=== PATIENT | male | born 1950 | race African-American/Black ===

== ENCOUNTER 2018-08-25 22:55 | Inpatient (IN) | payer MEDICARE, OTHER ==
--- NOTE | 2018-08-25 23:35 | ER Document Report ---
ED Cardiac - General Chief Complaint: Chest Pain Stated Complaint: SHORTNESS OF BREATH Time Seen by Provider: 08/25/18 23:19 Mode of Arrival: Ambulatory TRAVEL OUTSIDE OF THE [place] IN LAST 30 DAYS: No - HPI Patient complains to provider of: Other - 68-year-old man presents for evaluation of exertional dyspnea which has been worsening over the last 3 days. 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 Denies any history of heart attacks in the past or heart failure, does not have any stents placed, has had a stress test never had a catheterization. Notes that he has had his prostate removed in the past and is followed chronically for his CML. - Related Data Allergies/Adverse Reactions: Iodinated Contrast- Oral and IV Dye Allergy (Severe, Verified 08/26/18 00:29) neck swelling, difficulty breathing Past Medical History - General Information source: Patient - Social History Smoking Status: Never Smoker Frequency of alcohol use: None Drug Abuse: None Family History: None Review of Systems - Review of Systems -: Yes All other systems reviewed and negative Physical Exam - Vital signs Vitals: Temp Pulse Resp BP Pulse Ox 98.3 F 96 22 H 171/105 H 91 L 08/25/18 22:55 08/25/18 22:55 08/25/18 22:55 08/25/18 22:55 08/25/18 22:55 - General General appearance: Alert, Anxious In distress: Mild - HEENT Head: Normocephalic Eyes: Normal Conjunctiva: Normal Cornea: Normal Extraocular movements intact: Yes Eyelashes: Normal Pupils: PERRL Pharynx: Normal Neck: Normal - Respiratory Respiratory status: Agonal respirations, Tachypnea Chest status: Nontender Breath sounds: Rhonchi - Inferior lung butcher Chest palpation: Normal - Cardiovascular Rhythm: Regular Heart sounds: Normal auscultation Murmur: No - Abdominal Inspection: Normal Distension: No distension Tenderness: Nontender - Back Back: Normal - Extremities General upper extremity: Normal inspection, Nontender, Normal strength, Normal temperature General lower extremity: Normal inspection, Nontender, Normal strength, Normal temperature - Neurological Neuro grossly intact: Yes Cognition: Normal Orientation: AAOx4 Colwell Coma Scale Eye Opening: Spontaneous Colwell Coma Scale Verbal: Oriented Colwell Coma Scale Motor: Obeys Commands Colwell Coma Scale Total: 15 Speech: Normal Cranial nerves: Normal Motor strength normal: LUE, RUE, LLE, RLE - Psychological Associated symptoms: Normal affect Course - Re-evaluation Re-evalutation: 08/26/18 01:26 CML patient who presents for evaluation of increasing dyspnea over the last week. Endorses some weight cream over that time but does not weigh himself normally. On examination he is moderately tachypneic breathing between 25 and 30 times a minute, he is also unable to lie flat. He was placed on 2 L nasal cannula as he was 88% on room air. Initiated workup including x-ray of the chest, screening labs including troponin BNP EKG. Perform bedside echocardiogram for evaluation of possible effusion, there is no appreciable pericardial effusion, the patient's ejection fraction however appears markedly diminished, his right ventricle is collapsed suggestive of normal pulmonary filling pressures however his left ventricle demonstrates markedly diminished ejection fraction approximately 15% on bedside echocardiogram. Have a concern that this patient likely has new onset heart failure, chest x- ray demonstrates pulmonary edema without any obvious large effusions. We will initiate diuresis. Patient does have a leukocytosis in line with his known CML. His chemistry is relatively unremarkable. Have given 40 mg IV Lasix. We will plan for this patient undergo admission to the [facility] under the care of Dr. Paul Calles. We will continue to monitor emergency department until he is appropriately transition. - Vital Signs Vital signs: Temp Pulse Resp BP Pulse Ox 98.3 F 96 24 H 171/110 H 94 08/25/18 22:55 08/25/18 22:55 08/26/18 01:01 08/26/18 01:01 08/26/18 01:01 - Laboratory Result Diagrams: 08/25/18 23:55 08/25/18 23:55 Laboratory results interpreted by me: 08/25/18 08/25/18 23:55 23:55 WBC 31.9 H* RBC 4.09 L Hgb 11.3 L Hct 34.8 L RDW 14.7 H Plt Count 119 L Seg Neuts % (Manual) 9 L Lymphocytes % (Manual) 88 H Monocytes % (Manual) 2 L Abs Lymphs (Manual) 28.1 H Total Bilirubin 1.8 H ALT 16 L Total Protein 8.4 H Discharge - Discharge Clinical Impression: Orthopnea Heart failure Qualifiers: Heart failure type: unspecified Heart failure chronicity: unspecified Qualified Code(s): I50.9 - Heart failure, unspecified Dyspnea Qualifiers: Dyspnea type: unspecified Qualified Code(s): R06.00 - Dyspnea, unspecified Condition: Stable Disposition: ADMITTED INPATIENT Admitting Provider: Hospitalist Unit Admitted: IMCU Referrals: HAILEE KEY PA [Primary Care Provider] - Follow up as needed
[2018-08-26 00:16] LABS: VENOUS BLOOD BASE EXCESS 1.1 mmol/L; VENOUS BLOOD HCO3 26.8 mmol/L (20-32); VENOUS BLOOD PCO2 46.9 mmHg (35-63); VENOUS BLOOD PH 7.38 (7.30-7.42)
[2018-08-26 00:21] LABS: HEMATOCRIT 34.8 % (37.9-51.0); HEMOGLOBIN 11.3 g/dL (13.5-17.0); MEAN CORPUSCULAR HEMOGLOBIN 27.6 pg (27.0-33.4); MEAN CORPUSCULAR HGB CONC 32.4 g/dL (32.0-36.0); MEAN CORPUSCULAR VOLUME 85 fl (80-97); PLATELET COUNT 119 10^3/uL (150-450); RED BLOOD COUNT 4.09 10^6/uL (4.35-5.55); RED CELL DISTRIBUTION WIDTH 14.7 % (11.5-14.0)
--- NOTE | 2018-08-26 00:29 | RADIOLOGY REPORT (SQ) ---
PROCEDURE: XR CHEST 1 VIEW HISTORY: short of breath COMPARISON: None TECHNIQUE: Single projection of the chest was done. FINDINGS: There is mild cardiomegaly and mild bilateral vascular congestion suspicious for underlying changes of mild volume overload . There are no discrete airspace infiltrates, pneumothoraces or pleural effusions. IMPRESSION: There is mild cardiomegaly and mild bilateral vascular congestion suspicious for underlying changes of mild volume overload .
[2018-08-26 00:31] LABS: ALANINE AMINOTRANSFERASE 16 U/L (21-72); ALBUMIN 4.6 g/dL (3.5-5.0); ALKALINE PHOSPHATASE 71 U/L (38-126); ANION GAP 10 (5-19); ASPARTATE AMINO TRANSFERASE 42 U/L (17-59); BILIRUBIN,DIRECT 0.3 mg/dL (0.0-0.4); BILIRUBIN,TOTAL 1.8 mg/dL (0.2-1.3); BLOOD UREA NITROGEN 17 mg/dL (7-20); CALCIUM 8.9 mg/dL (8.4-10.2); CARBON DIOXIDE 28 mmol/L (22-30); CHLORIDE 102 mmol/L (98-107); GLUCOSE 90 mg/dL (75-110); LIPASE 71.9 U/L (23-300); POTASSIUM 4.1 mmol/L (3.6-5.0); SODIUM 140.4 mmol/L (137-145); TOTAL PROTEIN 8.4 g/dL (6.3-8.2)
[2018-08-26 00:43] LABS: ABSOLUTE LYMPHOCYTES# (MANUAL) 28.1 10^3/uL (0.5-4.7); ABSOLUTE MONOCYTES # (MANUAL) 0.6 10^3/uL (0.1-1.4); ABSOLUTE NEUTROPHILS# (MANUAL) 2.9 10^3/uL (1.7-8.2); BASOPHILS % (MANUAL) 0 % (0-2); EOSINOPHILS % (MANUAL) 1 % (0-6); MONOCYTES % (MANUAL) 2 % (3-13); SEGMENTED NEUTROPHILS % (MAN) 9 % (42-78); TOTAL CELLS COUNTED 100
[2018-08-26 00:46] LABS: ANISOCYTOSIS SLIGHT; PLATELET COMMENT DECREASED; PLATELET GIANT PRESENT; PLATELET LARGE PRESENT; SMUDGE CELLS PRESENT; TOXIC VACUOLATION PRESENT
[2018-08-26] MEDS ORDERED: FUROSEMIDE INJ/PF 40 MG/4 ML SDV IV ONE (00:47)
[2018-08-26 00:52] LABS: LYMPHOCYTES % (MANUAL) 88 % (13-45); WHITE BLOOD COUNT 31.9 10^3/uL (4.0-10.5)
[2018-08-26] MEDS ORDERED: ACETAMINOPHEN 325 MG TABLET PO PRN (01:50)
[2018-08-26] MEDS ORDERED: MAG HYDROX/AL HYDROX/SIMETH SUSP 30 ML UDCUP PO PRN (01:50)
--- NOTE | 2018-08-26 05:45 | PDOC H&P ---
History of Present Illness Admission Date/PCP: 08/26/18 01:33 DEEPTHI BOWIE Patient complains of: Shortness of breath History of Present Illness: MARIA TREJO is a 68 year old male with a past medical history of CML, prostate cancer in remission and hypertension. Patient presents with 3 days of worsening shortness of breath with exertion, lower extremity edema and orthopnea. Denying palpitations or chest pain but admitting productive cough of clear sputum. In the emergency room is found to have uncontrolled blood pressure in the 180 systolic, and a chest x-ray with pulmonary vascular congestion. He receives IV Lasix and referred to the hospitalist for admission. Patient denies previous episode. He admits to the discontinuation of blood pressure medication over the last year. He is pain-free and feels better on nasal cannula oxygen. Past Medical History Cardiac Medical History: Reports: Hypertension Malignancy Medical History: Reports: Leukemia, Other - Prostate cancer Past Surgical History Past Surgical History: Reports: Orthopedic Surgery - knee, Other - Prostatectomy Social History Information Source: Patient Smoking Status: Never Smoker Frequency of Alcohol Use: None Hx Recreational Drug Use: No Drugs: None Hx Prescription Drug Abuse: No - Advance Directive Resuscitation Status: Full Code Family History Family History: None Parental Family History Reviewed: Yes Children Family History Reviewed: Yes Sibling(s) Family History Reviewed.: Yes Medication/Allergy Allergies/Adverse Reactions: Iodinated Contrast- Oral and IV Dye Allergy (Severe, Verified 08/26/18 00:29) neck swelling, difficulty breathing Review of Systems Constitutional: ABSENT: chills, fever(s), headache(s), weight gain, weight loss Eyes: ABSENT: visual disturbances Ears: ABSENT: hearing changes Cardiovascular: PRESENT: as per HPI, dyspnea on exertion, edema, orthropnea. ABSENT: chest pain, palpitations Respiratory: ABSENT: cough, hemoptysis Gastrointestinal: ABSENT: abdominal pain, constipation, diarrhea, hematemesis, hematochezia, nausea, vomiting Genitourinary: ABSENT: dysuria, hematuria Musculoskeletal: ABSENT: joint swelling Integumentary: ABSENT: rash, wounds Neurological: ABSENT: abnormal gait, abnormal speech, confusion, dizziness, focal weakness, syncope Psychiatric: ABSENT: anxiety, depression, homidical ideation, suicidal ideation Endocrine: ABSENT: cold intolerance, heat intolerance, polydipsia, polyuria Hematologic/Lymphatic: ABSENT: easy bleeding, easy bruising Physical Exam Vital Signs: Temp Pulse Resp BP Pulse Ox 98.1 F 83 16 161/98 H 95 08/26/18 03:16 08/26/18 03:16 08/26/18 03:16 08/26/18 03:16 08/26/18 03:16 Intake & Output 08/24/18 08/25/18 08/26/18 11:59 11:59 11:59 Output Total 300 Balance -300 Weight 99 kg General appearance: PRESENT: cooperative, mild distress. ABSENT: obese Head exam: PRESENT: atraumatic, normocephalic Eye exam: PRESENT: conjunctiva pink, EOMI, PERRLA. ABSENT: scleral icterus Ear exam: PRESENT: normal external ear exam Mouth exam: PRESENT: moist, tongue midline Neck exam: ABSENT: carotid bruit, JVD, lymphadenopathy, thyromegaly Respiratory exam: PRESENT: crackles. ABSENT: accessory muscle use, rales, rhonchi, wheezes Cardiovascular exam: PRESENT: RRR. ABSENT: diastolic murmur, rubs, systolic murmur Pulses: PRESENT: normal dorsalis pedis pul Vascular exam: PRESENT: normal capillary refill GI/Abdominal exam: PRESENT: normal bowel sounds, soft. ABSENT: distended, guarding, mass, organolmegaly, rebound, tenderness Rectal exam: PRESENT: deferred Extremities exam: PRESENT: full ROM, pedal edema, +1 edema. ABSENT: calf tenderness, clubbing Neurological exam: PRESENT: alert, awake, oriented to person, oriented to place , oriented to time, oriented to situation, CN II-XII grossly intact. ABSENT: motor sensory deficit Psychiatric exam: PRESENT: appropriate affect, normal mood. ABSENT: homicidal ideation, suicidal ideation Skin exam: PRESENT: dry, intact, warm. ABSENT: cyanosis, rash Results Impressions: Chest X-Ray 08/25/18 23:32 IMPRESSION: There is mild cardiomegaly and mild bilateral vascular congestion suspicious for underlying changes of mild volume overload . Assessment & Plan - Diagnosis (1) Heart failure Qualifiers: Heart failure type: unspecified Heart failure chronicity: unspecified Qualified Code(s): I50.9 - Heart failure, unspecified Is this a current diagnosis for this admission?: Yes Plan: Likely diastolic heart failure, optimize blood pressure, gentle diuresis, follow -up echocardiogram and cardiac enzymes. (2) Orthopnea Is this a current diagnosis for this admission?: Yes Plan: Supplemental oxygen and diuresis. (3) CML (chronic myelocytic leukemia) Is this a current diagnosis for this admission?: Yes Plan: With associated thrombocytopenia and leukocytosis at baseline. Defer to outpatient management. - Time Time Spent: 50 to 70 Minutes - Inpatient Certification Medical Necessity: Need Close Monitoring Due to Risk of Patient Decompensation
[2018-08-26] MEDS: HEPARIN SOD (PORCINE) 5,000 UNIT/ML 1 ML SYRINGE SUBCUT SCH ×3 (06:25→21:53)
[2018-08-26 06:34] LABS: ANION GAP 12 (5-19); BLOOD UREA NITROGEN 17 mg/dL (7-20); CALCIUM 9.1 mg/dL (8.4-10.2); CARBON DIOXIDE 28 mmol/L (22-30); CHLORIDE 101 mmol/L (98-107); CHOLESTEROL 210.93 mg/dL (0-200); CREATINE KINASE 329 U/L (55-170); GLUCOSE 93 mg/dL (75-110); POTASSIUM 3.9 mmol/L (3.6-5.0); SODIUM 140.9 mmol/L (137-145); TRIGLYCERIDES 90 mg/dL (<150)
[2018-08-26 06:42] LABS: CREATINE KINASE MB 1.93 ng/mL (<4.55); TROPONIN I 0.031 ng/mL
[2018-08-26 06:45] LABS: DIRECT LDL 148 mg/dL (<100)
--- NOTE | 2018-08-26 09:11 | PDOC CONSULTATION ---
Consultation Consult Date: 08/26/18 Attending physician:: JOSE RAFAEL MCGOVERN Consult reason:: History of CLL on imbruvica, here with shortness of breath, pulmonary edema History of Present Illness Admission Date/PCP: 08/26/18 01:33 DEEPTHI BOWIE Patient complains of: Shortness of breath, dyspnea on exertion History of Present Illness: MARIA TREJO is a 68 year old male with long-standing history of CLL, also prostate cancer, recently with progression of CLL and was started a few months ago on Imbruvica, approximately 2 months ago. He has had a good response thus far. His white count has been coming down appropriately. Prior to initiation it was close to 100,000. He notes that about 3 days ago he had acute onset of shortness of breath dyspnea on exertion, orthopnea, ultimately the shortness of breath worsened and he came to the ED. Here, his blood pressure was quite elevated and he was found to have a malignant hypertension picture, chest x-ray indicated bilateral vascular congestion seemingly consistent with flash pulmonary edema. Previously was on antihypertensives, but when we treated him about 3 years ago initially with chemotherapy for the CLL he had lost weight, and he also lost weight with a prostatectomy at that time as well. So he came off blood pressure medication I think because of the weight loss. Past Medical History Cardiac Medical History: Reports: Hypertension Malignancy Medical History: Reports: Leukemia - cll, Other - Prostate cancer Past Surgical History Past Surgical History: Reports: Orthopedic Surgery - knee, Other - Prostatectomy Social History Information Source: Patient Smoking Status: Never Smoker Frequency of Alcohol Use: None Hx Recreational Drug Use: No Drugs: None Hx Prescription Drug Abuse: No - Advance Directive Resuscitation Status: Full Code Family History Family History: None Parental Family History Reviewed: Yes Children Family History Reviewed: Yes Sibling(s) Family History Reviewed.: Yes Medication/Allergy Allergies/Adverse Reactions: Iodinated Contrast- Oral and IV Dye Allergy (Severe, Verified 08/26/18 00:29) neck swelling, difficulty breathing Review of Systems Constitutional: ABSENT: chills, fever(s), headache(s), weight gain, weight loss Eyes: ABSENT: visual disturbances Ears: ABSENT: hearing changes Cardiovascular: ABSENT: chest pain, dyspnea on exertion, edema, orthropnea, palpitations Respiratory: ABSENT: cough, hemoptysis Gastrointestinal: ABSENT: abdominal pain, constipation, diarrhea, hematemesis, hematochezia, nausea, vomiting Genitourinary: ABSENT: dysuria, hematuria Musculoskeletal: ABSENT: joint swelling Integumentary: ABSENT: rash, wounds Neurological: ABSENT: abnormal gait, abnormal speech, confusion, dizziness, focal weakness, syncope Psychiatric: ABSENT: anxiety, depression, homidical ideation, suicidal ideation Endocrine: ABSENT: cold intolerance, heat intolerance, polydipsia, polyuria Hematologic/Lymphatic: ABSENT: easy bleeding, easy bruising Physical Exam Vital Signs: Temp Pulse Resp BP Pulse Ox 97.7 F 81 18 144/96 H 100 08/26/18 07:13 08/26/18 07:13 08/26/18 07:13 08/26/18 07:13 08/26/18 07:13 Intake & Output 08/25/18 08/26/18 08/27/18 06:59 06:59 06:59 Output Total 300 Balance -300 Weight 95.5 kg General appearance: PRESENT: no acute distress, well-developed, well-nourished Head exam: PRESENT: atraumatic, normocephalic Eye exam: PRESENT: conjunctiva pink, EOMI, PERRLA. ABSENT: scleral icterus Ear exam: PRESENT: normal external ear exam Mouth exam: PRESENT: moist, tongue midline Neck exam: ABSENT: carotid bruit, JVD, lymphadenopathy, thyromegaly Respiratory exam: PRESENT: clear to auscultation awa. ABSENT: rales, rhonchi, wheezes Cardiovascular exam: PRESENT: RRR. ABSENT: diastolic murmur, rubs, systolic murmur Pulses: PRESENT: normal dorsalis pedis pul Vascular exam: PRESENT: normal capillary refill GI/Abdominal exam: PRESENT: normal bowel sounds, soft. ABSENT: distended, guarding, mass, organolmegaly, rebound, tenderness Rectal exam: PRESENT: deferred Extremities exam: PRESENT: full ROM. ABSENT: calf tenderness, clubbing, pedal edema Neurological exam: PRESENT: alert, awake, oriented to person, oriented to place , oriented to time, oriented to situation, CN II-XII grossly intact. ABSENT: motor sensory deficit Psychiatric exam: PRESENT: appropriate affect, normal mood. ABSENT: homicidal ideation, suicidal ideation Skin exam: PRESENT: dry, intact, warm. ABSENT: cyanosis, rash Results Laboratory Results: 08/26/18 05:49 08/26/18 05:49 Sodium 140.9 Potassium 3.9 Chloride 101 Carbon Dioxide 28 Anion Gap 12 BUN 17 Creatinine 0.86 Est GFR ( Amer) > 60 Est GFR (Non-Af Amer) > 60 Glucose 93 Calcium 9.1 Triglycerides 90 Cholesterol 210.93 H LDL Cholesterol Direct 148 H VLDL Cholesterol 18.0 HDL Cholesterol 42 08/26/18 08/26/18 05:49 05:49 Creatine Kinase 329 H CK-MB (CK-2) 1.93 Troponin I 0.031 Impressions: Chest X-Ray 08/25/18 23:32 IMPRESSION: There is mild cardiomegaly and mild bilateral vascular congestion suspicious for underlying changes of mild volume overload . Assessment & Plan - Diagnosis (1) CLL (chronic lymphoid leukemia) in relapse Is this a current diagnosis for this admission?: Yes Plan: He has had good response, he is on the drug Imbruvica which does not have a significant risk of causing heart failure, but it does have a link closely to hypertension, so it can cause worsened hypertension, I believe he had underlying essential hypertension and this probably worsened that, ultimately resulting in a flash pulmonary edema picture. This is more likely than the drug causing either heart failure or a pulmonary hypersensitivity. He will hold the drug until this resolves and he sees me as an outpatient. Once his blood pressures under control we will reintroduce the drug and monitor him closely. (2) Dyspnea Qualifiers: Dyspnea type: orthopnea Qualified Code(s): R06.01 - Orthopnea Is this a current diagnosis for this admission?: Yes Plan: Secondary to flash pulmonary edema, agree with diuresis approach. - Time Time Spent: Greater than 70 Minutes - Inpatient Certification Based on my medical assessment, after consideration of the patient's comorbidities, presenting symptoms, or acuity I expect that the services needed warrant INPATIENT care.: Yes I certify that my determination is in accordance with my understanding of Medicare's requirements for reasonable and necessary INPATIENT services [42 CFR 412.3e].: Yes Medical Necessity: Risk of Complication if Not Cared For in Hospital
[2018-08-26] MEDS ORDERED: FUROSEMIDE INJ/PF 40 MG/4 ML SDV IV SCH (10:00)
[2018-08-26] MEDS ORDERED: NITROGLYCERIN 2.5 MG (0.1 MG/HR) PATCH.TD24 TD SCH (10:00)
[2018-08-26] MEDS ORDERED: POTASSIUM CHLORIDE 10 MEQ CAPSULE.ER PO SCH (10:00)
[2018-08-26] MEDS: LOSARTAN POTASSIUM 50 MG TABLET PO SCH (10:01)
[2018-08-26] MEDS: DOCUSATE SODIUM 100 MG CAPSULE PO SCH (10:01)
[2018-08-26] MEDS: ASPIRIN 81 MG TABLET, ENT COATED PO SCH (10:01)
--- NOTE | 2018-08-26 10:44 | EKG REPORT ---
SEVERITY:- ABNORMAL ECG - SINUS TACHYCARDIA MULTIFORM VENTRICULAR PREMATURE COMPLEXES LEFT ATRIAL ABNORMALITY BORDERLINE LEFT AXIS DEVIATION : Confirmed by: Tiburcio Velez 26-Aug-2018 10:44:33
--- NOTE | 2018-08-26 13:01 | XCELERA REPORT ---
[address] [address] Transthoracic Echocardiogram Report Name: MARIA TREJO Age: 68 yrs Gender: Male : 1950 Patient Status: Inpatient Patient Location: [address] [place] [address] Study Date: 08/26/2018 10:02 AM Procedure: A complete two-dimensional transthoracic echocardiogram was performed (2D, M-mode, spectral and color flow Doppler). The study was technically difficult with many images being suboptimal in quality. Reason For Study: new chf Ordering Physician: JOSE RAFAEL MCGOVERN Performed By: Patria Lombardi Interpretation Summary The Ejection Fraction estimate is 40-45% Left ventricular systolic function is mild to moderately reduced. There is borderline concentric left ventricular hypertrophy. The left ventricle is grossly normal size. Doppler measurements suggest reversible restrictive left ventricular relaxation, which is associated with grade III/IV or moderate diastolic dysfunction Regional wall motion abnormalities cannot be excluded due to limited visualization. Right ventricular function cannot be assessed due to poor image quality. The left atrium is moderately dilated. Borderline right atrial enlargement. There is a mild to moderate amount of mitral regurgitation There is no mitral valve stenosis. No aortic regurgitation is present. There is no aortic valve stenosis There is no tricuspid stenosis. No tricuspid regurgitation. The aortic root is not well visualized. The inferior vena cava appeared normal and decreased > 50% with respiration (RAP 5-10 mmHg) There is no pericardial effusion. Consider alternative methods to evaluate LVEF such as MUGA scan, cardiac MRI, or cardiac CTA. MMode/2D Measurements & Calculations RVDd: 3.5 cm LVIDd: 6.4 cm FS: 27.4 % Ao root diam: 3.2 cm IVSd: 0.87 cm LVIDs: 4.7 cm EDV(Teich): 210.6 ml Ao root area: 8.1 cm2 LVPWd: 1.1 cm ESV(Teich): 100.6 ml EF(Teich): 52.2 % Doppler Measurements & Calculations MV E max lucas: MV dec slope: Ao V2 max: LV V1 max P.8 cm/sec 120.2 cm/sec 5.0 mmHg MV A max lucas: 886.1 cm/sec2 Ao max PG: LV V1 max: 34.0 cm/sec MV dec time: 0.14 sec5.8 mmHg 111.8 cm/sec MV E/A: 3.6 LV dP/dt: 1057 mmHg/s PA V2 max: PI end-d lucas: 62.0 cm/sec 95.9 cm/sec PA max P.5 mmHg Left Ventricle The left ventricle is grossly normal size. There is borderline concentric left ventricular hypertrophy. Left ventricular systolic function is mild to moderately reduced. The Ejection Fraction estimate is 40-45%. Doppler measurements suggest reversible restrictive left ventricular relaxation, which is associated with grade III/IV or moderate diastolic dysfunction. Regional wall motion abnormalities cannot be excluded due to limited visualization. Right Ventricle The right ventricle is grossly normal size. Right ventricular function cannot be assessed due to poor image quality. Atria Borderline right atrial enlargement. The left atrium is moderately dilated. Interarterial septum not well visualized and not well dopplered. Cannot comment on ASD/PFO presence. Mitral Valve The mitral valve leaflets are sclerotic and show some degree of functional abnormality. There is no mitral valve stenosis. There is a mild to moderate amount of mitral regurgitation. Aortic Valve The aortic valve is not well visualized secondary to technical limitations. There is no aortic valve stenosis. No aortic regurgitation is present. Tricuspid Valve The tricuspid valve is not well visualized secondary to technical limitations. There is no tricuspid stenosis. No tricuspid regurgitation. Pulmonic Valve The pulmonic valve is not well visualized. Great Vessels The aortic root is not well visualized. The inferior vena cava appeared normal and decreased > 50% with respiration (RAP 5-10 mmHg). Effusions There is no pericardial effusion. Incidental Findings Consider alternative methods to evaluate LVEF such as MUGA scan, cardiac MRI, or cardiac CTA. : JOSE RAFAEL MCGOVERN > Tiburcio Velez
[2018-08-26 13:58] LABS: CREATINE KINASE MB 1.49 ng/mL (<4.55); TROPONIN I 0.024 ng/mL
--- NOTE | 2018-08-26 17:03 | PDOC PROGRESS REPORT ---
Subjective Progress Note for:: 08/26/18 Subjective:: The patient is a 68-year-old male with a medical history of CLL and prostate cancer (on oral chemotherapy agent followed by Dr. Jernigan) and hypertension who was admitted 08/26/18 for heart failure. The patient was seen on morning rounds. He was found resting in bed comfortably on supplemental oxygen by nasal cannula with his family member present. The patient endorses continued orthopnea, however, reports that he slept the best he has in several weeks last night after receiving IV furosemide. He reports continued mild dyspnea while at rest that worsens significantly with mild exacerbation. He denies fever, chills, headache, dizziness, chest pain, palpitations, cough, abdominal pain, nausea vomiting and diarrhea. He has no questions or concerns at this time. No concerns per nursing. Reason For Visit: HTN HEART FAILURE Physical Exam Vital Signs: Temp Pulse Resp BP Pulse Ox 97.8 F 71 18 119/82 96 08/26/18 16:21 08/26/18 16:21 08/26/18 16:21 08/26/18 16:21 08/26/18 16:21 Intake & Output 08/25/18 08/26/18 08/27/18 06:59 06:59 06:59 Intake Total 725 Output Total 300 500 Balance -300 225 Weight 95.5 kg General appearance: PRESENT: no acute distress, cooperative, well-developed, well-nourished - Overweight Head exam: PRESENT: atraumatic, normocephalic Eye exam: PRESENT: conjunctiva pink, EOMI, PERRLA. ABSENT: scleral icterus Ear exam: PRESENT: normal external ear exam Mouth exam: PRESENT: moist, tongue midline Neck exam: ABSENT: carotid bruit, JVD, lymphadenopathy, thyromegaly Respiratory exam: PRESENT: clear to auscultation awa, crackles - Bibasilar, symmetrical, unlabored, other - Supplemental oxygen by nasal cannula. ABSENT: rales, rhonchi, wheezes Cardiovascular exam: PRESENT: RRR, +S1, +S2. ABSENT: diastolic murmur, rubs, systolic murmur Pulses: PRESENT: normal dorsalis pedis pul Vascular exam: PRESENT: normal capillary refill GI/Abdominal exam: PRESENT: normal bowel sounds, soft. ABSENT: distended, guarding, mass, organolmegaly, rebound, tenderness Rectal exam: PRESENT: deferred Extremities exam: PRESENT: full ROM. ABSENT: calf tenderness, clubbing, pedal edema Neurological exam: PRESENT: alert, awake, oriented to person, oriented to place , oriented to time, oriented to situation, CN II-XII grossly intact. ABSENT: motor sensory deficit Psychiatric exam: PRESENT: appropriate affect, normal mood. ABSENT: homicidal ideation, suicidal ideation Skin exam: PRESENT: dry, intact, warm. ABSENT: cyanosis, rash Results Laboratory Results: 08/26/18 05:49 08/26/18 05:49 Sodium 140.9 Potassium 3.9 Chloride 101 Carbon Dioxide 28 Anion Gap 12 BUN 17 Creatinine 0.86 Est GFR ( Amer) > 60 Est GFR (Non-Af Amer) > 60 Glucose 93 Calcium 9.1 Triglycerides 90 Cholesterol 210.93 H LDL Cholesterol Direct 148 H VLDL Cholesterol 18.0 HDL Cholesterol 42 08/26/18 08/26/18 08/26/18 05:49 05:49 12:51 Creatine Kinase 329 H 290 H CK-MB (CK-2) 1.93 Troponin I 0.031 08/26/18 12:51 Creatine Kinase CK-MB (CK-2) 1.49 Troponin I 0.024 Impressions: Chest X-Ray 08/25/18 23:32 IMPRESSION: There is mild cardiomegaly and mild bilateral vascular congestion suspicious for underlying changes of mild volume overload . Assessment & Plan - Diagnosis (1) Acute exacerbation of CHF (congestive heart failure) Qualifiers: Heart failure type: combined systolic and diastolic Qualified Code(s): I50.43 - Acute on chronic combined systolic (congestive) and diastolic ( congestive) heart failure Is this a current diagnosis for this admission?: Yes Plan: The patient was admitted with dyspnea, orthopnea, and hypertensive urgency. He was found to have pulmonary edema by chest x-ray with mild cardiomegaly. ProBNP normal at 576. Cardiac enzymes negative x 3. Echocardiogram revealed LVEF 40-45% with borderline LVH, moderate diastolic dysfunction, and mild to moderate mitral regurgitation. He is admitted to [facility] on continuous cardiac telemetry. He received losartan, nitro transdermal patch, and IV furosemide overnight. We will continue his losartan. Have initiated spironolactone and carvedilol. We will plan to transition to p.o. furosemide tomorrow. He is placed on daily aspirin and statin therapy. Cardiac diet with daily weights and strict I&Os. Will need to determine if the patient is previously established with a gynecology teacher and ensure follow up after discharge. (2) Pulmonary edema Qualifiers: Chronicity: acute Qualified Code(s): J81.0 - Acute pulmonary edema Is this a current diagnosis for this admission?: Yes Plan: Secondary to acute CHF exacerbation and hypertensive urgency. He has been diuresed with IV furosemide with improvement in the symptoms, however, remains oxygen dependent. Continue diuresing with IV furosemide. Management of CHF as above. Attempt to wean oxygen as tolerated. (3) Hypertension Is this a current diagnosis for this admission?: Yes Plan: Improved with initial hypertension management: Losartan, nitroglycerin transdermal patch, IV furosemide overnight. Medication management as described above. Cardiac diet. (4) Hyperlipidemia Is this a current diagnosis for this admission?: Yes Plan: Lipid panel was assessed with a.m. labs: HDL 42, LDL 148, triglycerides 90, total cholesterol 210. He is placed on daily atorvastatin 20 mg. Cardiac diet. (5) CLL (chronic lymphocytic leukemia) Is this a current diagnosis for this admission?: Yes Plan: Patient of Dr. Jernigan's; appreciate his assistance. - Time Time Spent with patient: 15-24 minutes Medications reviewed and adjusted accordingly: Yes Anticipated discharge: Home Within: within 48 hours
[2018-08-26 18:59] LABS: CREATINE KINASE MB 1.37 ng/mL (<4.55); TROPONIN I 0.024 ng/mL
[2018-08-26] MEDS: CARVEDILOL 12.5 MG TABLET PO SCH (21:53)
[2018-08-26] MEDS: ATORVASTATIN CALCIUM 20 MG TABLET PO SCH (21:53)
[2018-08-27] MEDS: HEPARIN SOD (PORCINE) 5,000 UNIT/ML 1 ML SYRINGE SUBCUT SCH ×3 (05:13→21:35)
[2018-08-27 06:13] LABS: HEMOGLOBIN 10.5 g/dL (13.5-17.0); MEAN CORPUSCULAR HEMOGLOBIN 27.8 pg (27.0-33.4); MEAN CORPUSCULAR HGB CONC 32.9 g/dL (32.0-36.0); MEAN CORPUSCULAR VOLUME 84 fl (80-97); PLATELET COUNT 131 10^3/uL (150-450); RED BLOOD COUNT 3.79 10^6/uL (4.35-5.55); WHITE BLOOD COUNT 25.9 10^3/uL (4.0-10.5)
[2018-08-27 06:31] LABS: ANION GAP 13 (5-19); BLOOD UREA NITROGEN 25 mg/dL (7-20); CALCIUM 8.8 mg/dL (8.4-10.2); CARBON DIOXIDE 27 mmol/L (22-30); CHLORIDE 101 mmol/L (98-107); GLUCOSE 115 mg/dL (75-110); POTASSIUM 4.1 mmol/L (3.6-5.0); SODIUM 141.1 mmol/L (137-145)
--- NOTE | 2018-08-27 08:25 | PDOC PROGRESS REPORT ---
Subjective Progress Note for:: 08/27/18 Subjective:: Pt doing better this am Reason For Visit: HTN HEART FAILURE Physical Exam Vital Signs: Temp Pulse Resp BP Pulse Ox 97.9 F 58 L 16 111/71 92 08/27/18 07:38 08/27/18 07:38 08/27/18 07:38 08/27/18 07:38 08/27/18 07:38 Intake & Output 08/26/18 08/27/18 08/28/18 06:59 06:59 06:59 Intake Total 1915 Output Total 300 900 Balance -300 1015 Weight 95.5 kg 92.6 kg General appearance: PRESENT: no acute distress, well-developed, well-nourished Head exam: PRESENT: atraumatic, normocephalic Eye exam: PRESENT: conjunctiva pink, EOMI, PERRLA. ABSENT: scleral icterus Ear exam: PRESENT: normal external ear exam Mouth exam: PRESENT: moist, tongue midline Neck exam: ABSENT: carotid bruit, JVD, lymphadenopathy, thyromegaly Respiratory exam: PRESENT: clear to auscultation awa. ABSENT: rales, rhonchi, wheezes Cardiovascular exam: PRESENT: RRR. ABSENT: diastolic murmur, rubs, systolic murmur Pulses: PRESENT: normal dorsalis pedis pul Vascular exam: PRESENT: normal capillary refill GI/Abdominal exam: PRESENT: normal bowel sounds, soft. ABSENT: distended, guarding, mass, organolmegaly, rebound, tenderness Rectal exam: PRESENT: deferred Extremities exam: PRESENT: full ROM. ABSENT: calf tenderness, clubbing, pedal edema Neurological exam: PRESENT: alert, awake, oriented to person, oriented to place , oriented to time, oriented to situation, CN II-XII grossly intact. ABSENT: motor sensory deficit Psychiatric exam: PRESENT: appropriate affect, normal mood. ABSENT: homicidal ideation, suicidal ideation Skin exam: PRESENT: dry, intact, warm. ABSENT: cyanosis, rash Results Laboratory Results: 08/27/18 05:47 08/27/18 05:47 08/27/18 08/27/18 05:47 05:47 WBC 25.9 H RBC 3.79 L Hgb 10.5 L Hct 32.0 L MCV 84 MCH 27.8 MCHC 32.9 RDW 15.0 H Plt Count 131 L Sodium 141.1 Potassium 4.1 Chloride 101 Carbon Dioxide 27 Anion Gap 13 BUN 25 H Creatinine 1.12 Est GFR ( Amer) > 60 Est GFR (Non-Af Amer) > 60 Glucose 115 H Calcium 8.8 08/26/18 08/26/18 08/26/18 05:49 05:49 12:51 Creatine Kinase 329 H 290 H CK-MB (CK-2) 1.93 Troponin I 0.031 08/26/18 08/26/18 08/26/18 12:51 18:07 18:07 Creatine Kinase 310 H CK-MB (CK-2) 1.49 1.37 Troponin I 0.024 0.024 Impressions: Chest X-Ray 08/25/18 23:32 IMPRESSION: There is mild cardiomegaly and mild bilateral vascular congestion suspicious for underlying changes of mild volume overload . Assessment & Plan - Diagnosis (1) CLL (chronic lymphoid leukemia) in relapse Is this a current diagnosis for this admission?: Yes Plan: Holding imbruvica, likely cause of the worsened HTN, will restart once BP controlled and pt has had f/u w/ PCP. Ordered MUGA scan today to better quantify EF as suggested by cardiology in echo report. (2) Dyspnea Qualifiers: Dyspnea type: orthopnea Qualified Code(s): R06.01 - Orthopnea Is this a current diagnosis for this admission?: Yes Plan: SOB/FALK 2nd flash pulm edema from HTN emergency. improved
[2018-08-27] MEDS: DOCUSATE SODIUM 100 MG CAPSULE PO SCH (09:52)
[2018-08-27] MEDS: SPIRONOLACTONE 25 MG TABLET PO SCH (09:52)
[2018-08-27] MEDS: CARVEDILOL 12.5 MG TABLET PO SCH ×2 (09:52→21:33)
[2018-08-27] MEDS: ASPIRIN 81 MG TABLET, ENT COATED PO SCH (09:53)
[2018-08-27] MEDS: FUROSEMIDE 40 MG TABLET PO SCH (09:53)
[2018-08-27] MEDS: LOSARTAN POTASSIUM 50 MG TABLET PO SCH (09:53)
--- NOTE | 2018-08-27 12:56 | RADIOLOGY REPORT (SQ) ---
EXAM DESCRIPTION: NM MUGA REST COMPLETED DATE/TIME: 08/27/2018 12:15 pm REASON FOR STUDY: heart failure COMPARISON: Cardiac echo 08/26/2018 RADIONUCLIDE AND DOSE: 26.1 mCi technetium 99m labeled red blood cells The route of agent administration: Intravenous TECHNIQUE: Following administration of the radionuclide, gated images of the heart are obtained in t hree projections. Left ventricular functional analysis performed. LIMITATIONS: None. FINDINGS: LEFT VENTRICULAR FUNCTION: EJECTION FRACTION: 55%. END-DIASTOLIC VOLUME: 200 mL. END-SYSTOLIC VOLUME: 86 mL. WALL MOTION: No focal wall motion abnormalities. OTHER: No other significant finding. IMPRESSION: Left ventricular ejection fraction estimated at 55% (prior cardiac echo 08/26/2018 repor daniel a left ventricular ejection fraction of 47%) TECHNICAL DOCUMENTATION: JOB ID: [id number] [employer]- All Rights Reserved Reading location - IP/workstation name: [email or web address]
--- NOTE | 2018-08-27 17:01 | PDOC PROGRESS REPORT ---
Subjective Progress Note for:: 08/27/18 Subjective:: The patient is a 68-year-old male with a medical history of CLL and prostate cancer (on oral chemotherapy agent followed by Dr. Jernigan) and hypertension who was admitted 08/26/18 for heart failure. The patient was seen on afternoon rounds. He was found resting in bed comfortably on room air. The patient endorses continued orthopnea, though slightly improved last night. He denies dyspnea at rest or with activity. He reports that he ambulated in the hallways today without difficulty. Overall, he is feeling much better. He denies fever, chills, headache, dizziness, chest pain, palpitations, cough, abdominal pain, nausea vomiting and diarrhea. He has no questions or concerns at this time. No concerns per nursing. Reason For Visit: HTN HEART FAILURE Physical Exam Vital Signs: Temp Pulse Resp BP Pulse Ox 97.2 F 56 L 21 H 111/70 94 08/27/18 15:21 08/27/18 15:21 08/27/18 15:21 08/27/18 15:21 08/27/18 15:21 Intake & Output 08/26/18 08/27/18 08/28/18 06:59 06:59 06:59 Intake Total 1915 Output Total 300 900 Balance -300 1015 Weight 95.5 kg 92.6 kg General appearance: PRESENT: no acute distress, cooperative, well-developed, well-nourished Head exam: PRESENT: atraumatic, normocephalic Eye exam: PRESENT: conjunctiva pink, EOMI, PERRLA. ABSENT: scleral icterus Ear exam: PRESENT: normal external ear exam Mouth exam: PRESENT: moist, tongue midline Neck exam: ABSENT: carotid bruit, JVD, lymphadenopathy, thyromegaly Respiratory exam: PRESENT: clear to auscultation awa, symmetrical, unlabored. ABSENT: rales, rhonchi, wheezes Cardiovascular exam: PRESENT: RRR, +S1, +S2. ABSENT: diastolic murmur, rubs, systolic murmur Pulses: PRESENT: normal dorsalis pedis pul Vascular exam: PRESENT: normal capillary refill GI/Abdominal exam: PRESENT: normal bowel sounds, soft. ABSENT: distended, guarding, mass, organolmegaly, rebound, tenderness Rectal exam: PRESENT: deferred Extremities exam: PRESENT: full ROM. ABSENT: calf tenderness, clubbing, pedal edema Neurological exam: PRESENT: alert, awake, oriented to person, oriented to place , oriented to time, oriented to situation, CN II-XII grossly intact. ABSENT: motor sensory deficit Psychiatric exam: PRESENT: appropriate affect, normal mood. ABSENT: homicidal ideation, suicidal ideation Skin exam: PRESENT: dry, intact, warm. ABSENT: cyanosis, rash Results Laboratory Results: 08/27/18 05:47 08/27/18 05:47 08/27/18 08/27/18 05:47 05:47 WBC 25.9 H RBC 3.79 L Hgb 10.5 L Hct 32.0 L MCV 84 MCH 27.8 MCHC 32.9 RDW 15.0 H Plt Count 131 L Sodium 141.1 Potassium 4.1 Chloride 101 Carbon Dioxide 27 Anion Gap 13 BUN 25 H Creatinine 1.12 Est GFR ( Amer) > 60 Est GFR (Non-Af Amer) > 60 Glucose 115 H Calcium 8.8 08/26/18 08/26/18 08/26/18 05:49 05:49 12:51 Creatine Kinase 329 H 290 H CK-MB (CK-2) 1.93 Troponin I 0.031 08/26/18 08/26/18 08/26/18 12:51 18:07 18:07 Creatine Kinase 310 H CK-MB (CK-2) 1.49 1.37 Troponin I 0.024 0.024 Impressions: Chest X-Ray 08/25/18 23:32 IMPRESSION: There is mild cardiomegaly and mild bilateral vascular congestion suspicious for underlying changes of mild volume overload . MUGA 08/27/18 00:00 IMPRESSION: Left ventricular ejection fraction estimated at 55% (prior cardiac echo 08/26/2018 reported a left ventricular ejection fraction of 47%) Assessment & Plan - Diagnosis (1) Acute exacerbation of CHF (congestive heart failure) Qualifiers: Heart failure type: combined systolic and diastolic Qualified Code(s): I50.43 - Acute on chronic combined systolic (congestive) and diastolic ( congestive) heart failure Is this a current diagnosis for this admission?: Yes Plan: Improved; acute exacerbation appears to have resolved. He is now maintaining oxygen saturations while ambulatory on room air with acceptable blood pressures. Chest x-ray revealed mild cardiomegaly with pulmonary edema. ProBNP normal at 576. Cardiac enzymes negative x 3. Echocardiogram revealed LVEF 40-45% with borderline LVH, moderate diastolic dysfunction, and mild to moderate mitral regurgitation. MUGA scan today reassuring; LVEF 55% He is admitted to [facility] on continuous cardiac telemetry. Continue his losartan, carvedilol, and spironolactone. Have transitioned to p.o. furosemide today. He is placed on daily aspirin and statin therapy. Cardiac diet with daily weights and strict I&Os. Cardiology is consulted; appreciate their evaluation and recommendations. (2) Pulmonary edema Qualifiers: Chronicity: acute Qualified Code(s): J81.0 - Acute pulmonary edema Is this a current diagnosis for this admission?: Yes Plan: Resolved; lung sounds clear, maintaining oxygen saturations on room air. Secondary to acute CHF exacerbation and hypertensive urgency. Plan as above. (3) Hypertension Is this a current diagnosis for this admission?: Yes Plan: Normotensive at present. Medication management as described above. Cardiac diet. (4) Hyperlipidemia Is this a current diagnosis for this admission?: Yes Plan: Lipid panel was assessed with a.m. labs: HDL 42, LDL 148, triglycerides 90, total cholesterol 210. Continue atorvastatin 20 mg. Cardiac diet. (5) CLL (chronic lymphocytic leukemia) Is this a current diagnosis for this admission?: Yes Plan: Patient of Dr. Gabriels; appreciate his assistance. - Time Time Spent with patient: 15-24 minutes Medications reviewed and adjusted accordingly: Yes Anticipated discharge: Home Within: within 24 hours
[2018-08-27] MEDS: ATORVASTATIN CALCIUM 20 MG TABLET PO SCH (21:35)
[2018-08-27] MEDS ORDERED: FLUTICASONE NASAL SPRAY 50 MCG/SPRY 120 SPRAY/16 GM NASL SCH (22:00)
--- NOTE | 2018-08-27 22:43 | PDOC CONSULTATION ---
Consultation Consult Date: 08/27/18 Attending physician:: RODERICK TAPIA Consult reason:: Congestive heart failure History of Present Illness Admission Date/PCP: 08/26/18 01:33 DEEPTHI BOWIE Patient complains of: Shortness of breath History of Present Illness: MARIA TREJO is a 68 year old male with a past medical history of CML, prostate cancer in remission and hypertension. Patient presents with 3 days of worsening shortness of breath with exertion, lower extremity edema and orthopnea. Denying palpitations or chest pain but admitting productive cough of clear sputum. In the emergency room is found to have uncontrolled blood pressure in the 180 systolic, and a chest x-ray with pulmonary vascular congestion. He receives IV Lasix and referred to the hospitalist for admission. Patient denies previous episode. He admits to the discontinuation of blood pressure medication over the last year. He is pain-free and feels better on nasal cannula oxygen. This history was reviewed and confirmed with the patient. Patient gives a long- standing history of hypertension. In the past he was on currently for last several months he has been off any antihypertensives. Patient also describes history of loud snoring. Patient denied any prior history of myocardial infarction, angina or congestive heart failure. Past Medical History Cardiac Medical History: Reports: Hypertension Malignancy Medical History: Reports: Leukemia - cll, Other - Prostate cancer Past Surgical History Past Surgical History: Reports: Orthopedic Surgery - knee, Other - Prostatectomy Social History Information Source: Patient Smoking Status: Never Smoker Frequency of Alcohol Use: None Hx Recreational Drug Use: No Drugs: None Hx Prescription Drug Abuse: No - Advance Directive Resuscitation Status: Full Code Family History Family History: Hypertension Parental Family History Reviewed: Yes Children Family History Reviewed: Yes Sibling(s) Family History Reviewed.: Yes Medication/Allergy Home Medications: Valacyclovir HCl [Valtrex 500 mg Tablet] 500 mg PO QHS 08/26/18 Acetaminophen [Tylenol 325 mg Tablet] 650 mg PO Q4HP PRN tablet 08/28/18 Aspirin [Ecotrin 81 mg EC Tablet] 81 mg PO DAILY #90 tabec 08/28/18 Atorvastatin Calcium [Lipitor 40 mg Tablet] 40 mg PO QHS #30 tablet 08/28/18 Carvedilol [Coreg 12.5 mg Tablet] 25 mg PO Q12 #60 tablet 08/28/18 Furosemide [Lasix 40 mg Tablet] 40 mg PO DAILY #30 tablet 08/28/18 Losartan Potassium [Cozaar 50 mg Tablet] 100 mg PO DAILY #30 tablet 08/28/18 Spironolactone [Aldactone 25 mg Tablet] 25 mg PO DAILY #30 tablet 08/28/18 Allergies/Adverse Reactions: Iodinated Contrast- Oral and IV Dye Allergy (Severe, Verified 08/26/18 00:29) neck swelling, difficulty breathing Review of Systems Review of Systems: Please see history of present illness and past medical history as wall. Constitutional: No fever or chills reported. Head : No recent chronic headaches, recent head injury. Eyes: No recent eye pain, diplopia, redness, discharge, acute visual changes. Ears: No recent chronic ear pain, acute hearing loss, ear discharge. Oral cavity: No recent ulcerations, bleeding, oral cavity discomfort. Neck: No recent acute neck pain reported. Hematologic: No recent easy bruising or bleeding. Lymphatic: No recent lymph node enlargement reported. Cardiovascular system review: See history of present illness. Respiratory system review: No hemoptysis or blood clots in the lungs reported. Mild Shortness of breath on exertion Gastrointestinal system review: Negative for any recent acute hematemesis, melena. Genitourinary system review: No recent acute or chronic hematuria, flank pain, UTI etc. reported. Skin system review: Negative for any recent abnormal bruising, no rash, no pruritus reported. Neurologic: No prior history of strokes, mini strokes, seizure disorder. Psychologic: No history of major psychosis or major depression reported. Musculoskeletal: Minor aches and pains reported. No acute joint swelling reported. Endocrine: No recent polyuria, polydipsia, recent heat or cold intolerance. Physical Exam Vital Signs: Temp Pulse Resp BP Pulse Ox 98.5 F 59 L 21 H 126/79 H 98 08/27/18 19:52 08/27/18 19:52 08/27/18 19:30 08/27/18 19:52 08/27/18 19:52 Intake & Output 08/26/18 08/27/18 08/28/18 06:59 06:59 06:59 Intake Total 1915 950 Output Total 300 900 Balance -300 1015 950 Weight 95.5 kg 92.6 kg Exam: GENERAL: well-nourished and in no acute distress. Alert and oriented x3 HEAD: Atraumatic, normocephalic. EYES: Pupils equal round and reactive to light, extraocular movements intact, sclera anicteric, conjunctiva are normal. ENT: TMs normal, nares patent, oropharynx clear without exudates. Moist mucous membranes. No oral ulcerations or bleeding gums noted NECK: supple without lymphadenopathy. Trachea is central. No cervical or axillary lymphadenopathy noted. Carotids are 2+, JVD WNL LUNGS: Respiration seems nonlabored, no significant accessory muscle action noted. Breath sounds clear to auscultation bilaterally and equal noted. No wheezes rales or rhonchi noted. No significant dullness noted on percussion. CHEST: Palpation of the chest wall shows no significant chest wall tenderness. HEART: [place] TOSSER, No PSH, 1/6 MOHSEN aortic area, 1/6 le systolic murmur mitral area, no rubs, S4 gallops. ABDOMEN: Soft, no significant tenderness appreciated, normoactive bowel sounds. No guarding, no rebound. No rigidity noted . No masses appreciated. EXTREMITIES: Pedal pulses are 1-2+, no calf tenderness noted. No clubbing or cyanosis. negative pedal edema noted NEUROLOGICAL: Focused neurological exam showed no significant neurologic deficit. Normal speech, no focal weakness appreciated. PSYCH: Normal mood, normal affect. Judgment and insight within normal limits. SKIN: No significant ecchymosis, skin is noted to be warm. MUSCULOSKELETAL EXAM: No significant acute joint swelling noted. Results Laboratory Results: 08/27/18 05:47 08/27/18 05:47 08/27/18 08/27/18 05:47 05:47 WBC 25.9 H RBC 3.79 L Hgb 10.5 L Hct 32.0 L MCV 84 MCH 27.8 MCHC 32.9 RDW 15.0 H Plt Count 131 L Sodium 141.1 Potassium 4.1 Chloride 101 Carbon Dioxide 27 Anion Gap 13 BUN 25 H Creatinine 1.12 Est GFR ( Amer) > 60 Est GFR (Non-Af Amer) > 60 Glucose 115 H Calcium 8.8 08/26/18 08/26/18 08/26/18 05:49 05:49 12:51 Creatine Kinase 329 H 290 H CK-MB (CK-2) 1.93 Troponin I 0.031 08/26/18 08/26/18 08/26/18 12:51 18:07 18:07 Creatine Kinase 310 H CK-MB (CK-2) 1.49 1.37 Troponin I 0.024 0.024 EKG Comments: Sinus rhythm, left axis deviation, no acute ST-T wave changes are noted Impressions: Chest X-Ray 08/25/18 23:32 IMPRESSION: There is mild cardiomegaly and mild bilateral vascular congestion suspicious for underlying changes of mild volume overload . MUGA 08/27/18 00:00 IMPRESSION: Left ventricular ejection fraction estimated at 55% (prior cardiac echo 08/26/2018 reported a left ventricular ejection fraction of 47%) Assessment & Plan - Diagnosis (1) Heart failure Qualifiers: Heart failure type: combined systolic and diastolic Heart failure chronicity: unspecified Qualified Code(s): I50.40 - Unspecified combined systolic (congestive) and diastolic (congestive) heart failure Is this a current diagnosis for this admission?: Yes (2) Hyperlipidemia Qualifiers: Hyperlipidemia type: unspecified Qualified Code(s): E78.5 - Hyperlipidemia , unspecified Is this a current diagnosis for this admission?: Yes (3) Hypertension Is this a current diagnosis for this admission?: Yes (4) CLL (chronic lymphocytic leukemia) Is this a current diagnosis for this admission?: Yes - Notes Notes: Congestive heart failure: Related to systolic and diastolic dysfunction combined in the setting of controlled hypertension and volume overload.. Continue with ARB, beta blockers and diuretics. Hypertension: Currently well controlled but was not well controlled as an outpatient. Patient tolerating medications that has been placed for control of hypertension. Dyslipidemia: Recommend statin therapy, patient was placed on this. History of chronic lymphocytic leukemia: Currently stable. This is being well managed by the oncologist. He has good follow-up care with them established. I have placed patient on Lipitor, will schedule patient for a nuclear stress test as an outpt. - Time Time Spent: 30 to 50 Minutes Medications reviewed and adjusted accordingly: Yes
[2018-08-28] MEDS: HEPARIN SOD (PORCINE) 5,000 UNIT/ML 1 ML SYRINGE SUBCUT SCH (06:18)
[2018-08-28 08:34] VITALS: BP 131/82
--- NOTE | 2018-08-28 08:38 | PDOC PROGRESS REPORT ---
Subjective Progress Note for:: 08/28/18 Subjective:: Patient feeling well and is very anxious to go home today. Reason For Visit: HTN HEART FAILURE Physical Exam Vital Signs: Temp Pulse Resp BP Pulse Ox 97.8 F 70 16 131/82 H 97 08/28/18 08:26 08/28/18 08:26 08/28/18 08:26 08/28/18 08:26 08/28/18 08:26 Intake & Output 08/27/18 08/28/18 08/29/18 06:59 06:59 06:59 Intake Total 1915 950 Output Total 900 Balance 1015 950 Weight 92.6 kg 94 kg General appearance: PRESENT: no acute distress Respiratory exam: PRESENT: clear to auscultation awa, unlabored Cardiovascular exam: PRESENT: RRR Extremities exam: ABSENT: pedal edema Neurological exam: PRESENT: alert, awake Psychiatric exam: PRESENT: appropriate affect Skin exam: PRESENT: normal color Results Laboratory Results: 08/27/18 05:47 08/27/18 05:47 08/26/18 08/26/18 08/26/18 05:49 05:49 12:51 Creatine Kinase 329 H 290 H CK-MB (CK-2) 1.93 Troponin I 0.031 08/26/18 08/26/18 08/26/18 12:51 18:07 18:07 Creatine Kinase 310 H CK-MB (CK-2) 1.49 1.37 Troponin I 0.024 0.024 Impressions: Chest X-Ray 08/25/18 23:32 IMPRESSION: There is mild cardiomegaly and mild bilateral vascular congestion suspicious for underlying changes of mild volume overload . MUGA 08/27/18 00:00 IMPRESSION: Left ventricular ejection fraction estimated at 55% (prior cardiac echo 08/26/2018 reported a left ventricular ejection fraction of 47%) Assessment & Plan - Diagnosis (1) CLL (chronic lymphocytic leukemia) Is this a current diagnosis for this admission?: Yes Plan: Imbruvica on hold until patient returns to see Dr. Jernigan next week. (2) Hypertension Is this a current diagnosis for this admission?: Yes Plan: Much improved. Defer to primary team. - Plan Summary Plan Summary: I will sign off. Please call me with any questions or concerns. He already has appointment scheduled as outpatient.
[2018-08-28] MEDS: DOCUSATE SODIUM 100 MG CAPSULE PO SCH (09:24)
[2018-08-28] MEDS: FUROSEMIDE 40 MG TABLET PO SCH (09:25)
[2018-08-28] MEDS: LOSARTAN POTASSIUM 50 MG TABLET PO SCH (09:25)
[2018-08-28] MEDS: SPIRONOLACTONE 25 MG TABLET PO SCH (09:26)
[2018-08-28] MEDS: CARVEDILOL 12.5 MG TABLET PO SCH (09:26)
[2018-08-28] MEDS ORDERED: ASPIRIN 81 MG TABLET, ENT COATED PO SCH (10:00)
--- NOTE | 2018-08-28 10:21 | EKG REPORT ---
SEVERITY:- BORDERLINE ECG - SINUS RHYTHM VENTRICULAR PREMATURE COMPLEX LEFT AXIS DEVIATION BORDERLINE T ABNORMALITIES, INFERIOR LEADS : Confirmed by: Tiburcio Velez 28-Aug-2018 10:20:19
[2018-08-28] MEDS ORDERED: ATORVASTATIN CALCIUM 40 MG TABLET PO SCH (22:00)
--- NOTE | 2018-08-29 18:00 | PDOC PROGRESS REPORT ---
Subjective Progress Note for:: 08/28/18 Subjective:: Patient seems to be doing better with gradual improvement. Pt is denying any chest arm or neck discomfort. Patient denying any PND, orthopnea. Patient denied any sustained palpitations, dizziness, syncope, near syncope. Patient denying any fever chills. Patient denying any other significant discomfort. Patient is maintaining sinus rhythm. Review of systems: Rest review of systems negative. Medications: Medications have been reviewed. Reason For Visit: HTN HEART FAILURE Physical Exam Vital Signs: Temp Pulse Resp BP Pulse Ox 97.8 F 70 16 131/82 H 97 08/28/18 10:39 08/28/18 10:39 08/28/18 10:39 08/28/18 10:39 08/28/18 10:39 Intake & Output 08/27/18 08/28/18 08/29/18 06:59 06:59 06:59 Intake Total 1915 950 Output Total 900 Balance 1015 950 Weight 92.6 kg 94 kg Exam: GENERAL: well-nourished and in no acute distress. Alert and oriented x3 HEAD: Atraumatic, normocephalic. EYES: SEVERO, sclera anicteric, conjunctiva are normal. ENT: Moist mucous membranes. No oral ulcerations or bleeding gums noted. No obvious ear, nose or throat abnormalities noted. NECK: supple without lymphadenopathy. Trachea is central. No cervical or axillary lymphadenopathy noted. Carotids are 2+, JVD WNL LUNGS: Breath sounds clear bilaterally. No wheezes rales or rhonchi noted. No significant dullness noted on percussion. CHEST: Palpation of the chest wall shows no significant chest wall tenderness. HEART: [place] [employer]IST, No PSH, 1/6 MOHSEN aortic area, 1/6 le systolic murmur mitral area, no rubs, no gallops. ABDOMEN: Soft, no significant tenderness appreciated, normoactive bowel sounds. No guarding, no rebound. No rigidity noted . No masses appreciated. EXTREMITIES: Pedal pulses are 1-2+, no calf tenderness noted. No clubbing or cyanosis. negative pedal edema noted NEUROLOGICAL: Focused neurological exam showed no significant neurologic deficit. Normal speech, no focal weakness appreciated. PSYCH: Normal mood, normal affect. Judgment and insight within normal limits. SKIN: No significant ecchymosis, skin is noted to be warm. MUSCULOSKELETAL EXAM: No significant acute joint swelling noted. Results Laboratory Results: 08/27/18 05:47 08/27/18 05:47 08/26/18 08/26/18 08/26/18 05:49 05:49 12:51 Creatine Kinase 329 H 290 H CK-MB (CK-2) 1.93 Troponin I 0.031 08/26/18 08/26/18 08/26/18 12:51 18:07 18:07 Creatine Kinase 310 H CK-MB (CK-2) 1.49 1.37 Troponin I 0.024 0.024 EKG Comments: Telemetry shows sinus rhythm. EKG shows sinus rhythm without any acute ST-T wave changes Impressions: Chest X-Ray 08/25/18 23:32 IMPRESSION: There is mild cardiomegaly and mild bilateral vascular congestion suspicious for underlying changes of mild volume overload . MUGA 08/27/18 00:00 IMPRESSION: Left ventricular ejection fraction estimated at 55% (prior cardiac echo 08/26/2018 reported a left ventricular ejection fraction of 47%) Assessment & Plan - Diagnosis (1) Heart failure Qualifiers: Heart failure type: combined systolic and diastolic Heart failure chronicity: unspecified Qualified Code(s): I50.40 - Unspecified combined systolic (congestive) and diastolic (congestive) heart failure Is this a current diagnosis for this admission?: Yes (2) Hyperlipidemia Qualifiers: Hyperlipidemia type: unspecified Qualified Code(s): E78.5 - Hyperlipidemia , unspecified Is this a current diagnosis for this admission?: Yes (3) Hypertension Is this a current diagnosis for this admission?: Yes (4) CLL (chronic lymphocytic leukemia) Is this a current diagnosis for this admission?: Yes (5) Sleep disorder Is this a current diagnosis for this admission?: Yes (6) Dyspnea Qualifiers: Dyspnea type: orthopnea Qualified Code(s): R06.01 - Orthopnea Is this a current diagnosis for this admission?: Yes - Notes Notes: Congestive heart failure: [place] to be mainly related to diastolic dysfunction but with also some systolic component. Continue with diuretics, beta-meenu, JOHNIE inhibitor/ARB therapy. Hyperlipidemia: Continue with statin therapy. Dyspnea: This has improved. Patient will benefit from stress test to rule out any underlying CAD as cause of dyspnea. Hypertension: Under good control. Chronic lymphocytic leukemia: Being well managed by oncologist. Patient does describe history of loud habitual snoring. Patient has underlying sleep disorder. Discussed that he will benefit from evaluation with a PSG. Patient is agreeable to pursue that. Patient is likely to be discharged later on. Patient can follow-up with me if he wishes. - Time Time with patient: Greater than 35 minutes - More than 50% of the time spent coordinating care, discussing management plans with involved caregivers. Management plans discussed with involved personnels. Medical decision making was of moderate to high complexity, patient's has multiple comorbidities. Medications reviewed and adjusted accordingly: Yes
--- NOTE | 2018-08-31 16:56 | PDOC DISCHARGE SUMMARY ---
General - Admit/Disc Date/PCP Admission Date/Primary Care Provider: 08/26/18 01:33 DEEPTHI BOWIE Discharge Date: 08/28/18 - Discharge Diagnosis (1) Acute exacerbation of CHF (congestive heart failure) Is this a current diagnosis for this admission?: Yes Summary: Acute exacerbation is resolved. (2) Pulmonary edema Is this a current diagnosis for this admission?: Yes Summary: Resolved. (3) Hypertension Is this a current diagnosis for this admission?: Yes (4) Hyperlipidemia Is this a current diagnosis for this admission?: Yes (5) CLL (chronic lymphocytic leukemia) Is this a current diagnosis for this admission?: Yes - Additional Information Resuscitation Status: Full Code Discharge Diet: Cardiac Discharge Activity: Activity As Tolerated, Weigh Daily Prescriptions: Aspirin [Ecotrin 81 mg EC Tablet] 81 mg PO DAILY #90 tabec Atorvastatin Calcium [Lipitor 40 mg Tablet] 40 mg PO QHS #30 tablet Carvedilol [Coreg 12.5 mg Tablet] 25 mg PO Q12 #60 tablet Furosemide [Lasix 40 mg Tablet] 40 mg PO DAILY #30 tablet Losartan Potassium [Cozaar 50 mg Tablet] 100 mg PO DAILY #30 tablet Spironolactone [Aldactone 25 mg Tablet] 25 mg PO DAILY #30 tablet Home Medications: Valacyclovir HCl [Valtrex 500 mg Tablet] 500 mg PO QHS 08/26/18 Acetaminophen [Tylenol 325 mg Tablet] 650 mg PO Q4HP PRN tablet 08/28/18 Aspirin [Ecotrin 81 mg EC Tablet] 81 mg PO DAILY #90 tabec 08/28/18 Atorvastatin Calcium [Lipitor 40 mg Tablet] 40 mg PO QHS #30 tablet 08/28/18 Carvedilol [Coreg 12.5 mg Tablet] 25 mg PO Q12 #60 tablet 08/28/18 Furosemide [Lasix 40 mg Tablet] 40 mg PO DAILY #30 tablet 08/28/18 Losartan Potassium [Cozaar 50 mg Tablet] 100 mg PO DAILY #30 tablet 08/28/18 Spironolactone [Aldactone 25 mg Tablet] 25 mg PO DAILY #30 tablet 08/28/18 History of Present Illness History of Present Illness: Per H&P by Dr. Calles: MARIA TREJO is a 68 year old male with a past medical history of CML, prostate cancer in remission and hypertension. Patient presents with 3 days of worsening shortness of breath with exertion, lower extremity edema and orthopnea. Denying palpitations or chest pain but admitting productive cough of clear sputum. In the emergency room is found to have uncontrolled blood pressure in the 180 systolic, and a chest x-ray with pulmonary vascular congestion. He receives IV Lasix and referred to the hospitalist for admission. Patient denies previous episode. He admits to the discontinuation of blood pressure medication over the last year. He is pain- free and feels better on nasal cannula oxygen. Hospital Course Hospital Course: The patient was admitted to [facility] on continuous cardiac telemetry for acute CHF exacerbation. Chest x-ray revealed mild cardiomegaly with pulmonary edema. ProBNP normal at 576. Cardiac enzymes negative x 3. Echocardiogram revealed LVEF 40-45% with borderline LVH, moderate diastolic dysfunction, and mild to moderate mitral regurgitation. MUGA scan today reassuring; LVEF 55% He was placed on losartan, carvedilol, spironolactone, aspirin daily statin therapy. He was initially diuresed with IV furosemide and transition to p.o. at time of discharge. Cardiology was consulted and recommended follow-up as an outpatient for stress testing. He is now euvolemic with appropriate blood pressures, maintaining oxygen saturations on room air, and asymptomatic. He is met with the patient educator and customer care team coach; was provided packets on dietary recommendations and importance of daily weights and fluid monitoring. Oncology was consulted secondary to the patient's CLL; his Imbruvica was placed on held due to potential for worsening hypertension. Plan is for the patient to follow-up as scheduled next week for consideration of resuming if appropriate blood pressure control has been achieved. At time of discharge, the patient was in stable condition, maintaining oxygen saturations while ambulatory on room air, and asymptomatic. He was provided prescriptions for aspirin, atorvastatin, carvedilol, Lasix, losartan, and spironolactone. He has been encouraged to follow-up with his primary care provider within 1 week , with Dr. Jernigan as scheduled, and with cardiology (Dr. Velez) within 2-4 weeks. He is advised on the importance of daily weights and reporting any weight gain greater than 2 pounds to his provider and to return to the emergency department as needed for any concerning symptoms. Physical Exam Vital Signs: Temp Pulse Resp BP Pulse Ox 97.8 F 70 16 131/82 H 97 08/28/18 10:39 08/28/18 10:39 08/28/18 10:39 08/28/18 10:39 08/28/18 10:39 General appearance: PRESENT: no acute distress, well-developed, well-nourished Head exam: PRESENT: atraumatic, normocephalic Eye exam: PRESENT: conjunctiva pink, EOMI, PERRLA. ABSENT: scleral icterus Ear exam: PRESENT: normal external ear exam Mouth exam: PRESENT: moist, tongue midline Neck exam: ABSENT: carotid bruit, JVD, lymphadenopathy, thyromegaly Respiratory exam: PRESENT: clear to auscultation awa, symmetrical, unlabored. ABSENT: rales, rhonchi, wheezes Cardiovascular exam: PRESENT: RRR. ABSENT: diastolic murmur, rubs, systolic murmur Pulses: PRESENT: normal dorsalis pedis pul Vascular exam: PRESENT: normal capillary refill GI/Abdominal exam: PRESENT: normal bowel sounds, soft. ABSENT: distended, guarding, mass, organolmegaly, rebound, tenderness Rectal exam: PRESENT: deferred Extremities exam: PRESENT: full ROM. ABSENT: calf tenderness, clubbing, pedal edema Neurological exam: PRESENT: alert, awake, oriented to person, oriented to place , oriented to time, oriented to situation, CN II-XII grossly intact. ABSENT: motor sensory deficit Psychiatric exam: PRESENT: appropriate affect, normal mood. ABSENT: homicidal ideation, suicidal ideation Skin exam: PRESENT: dry, intact, warm. ABSENT: cyanosis, rash Results Laboratory Results: 08/27/18 05:47 08/27/18 05:47 08/26/18 08/26/18 08/26/18 05:49 05:49 12:51 Creatine Kinase 329 H 290 H CK-MB (CK-2) 1.93 Troponin I 0.031 08/26/18 08/26/18 08/26/18 12:51 18:07 18:07 Creatine Kinase 310 H CK-MB (CK-2) 1.49 1.37 Troponin I 0.024 0.024 Impressions: Chest X-Ray 08/25/18 23:32 IMPRESSION: There is mild cardiomegaly and mild bilateral vascular congestion suspicious for underlying changes of mild volume overload . MUGA 08/27/18 00:00 IMPRESSION: Left ventricular ejection fraction estimated at 55% (prior cardiac echo 08/26/2018 reported a left ventricular ejection fraction of 47%) Qualifiers - * PATIENT BEING DISCHARGED WITH ANY OF THE FOLLOWING DIAGNOSIS: Heart Failure HF Pt being discharged on ACEI for LVEF less than 40%?: No Reason(s) for not prescribing ACEI:: Not indicated HF Pt being discharged on ARBS for LVEF less than 40%?: Yes HF Pt with Afib discharged with Warfarin?: No Reason(s) for not prescribing Warfarin:: Not indicated HF Pt discharged on evidence-based Beta Marian:: Yes Plan Discharge Plan: Discharged home with self-care. Follow-up with primary care provider within 1 week. Follow-up with Dr. Jernigan as scheduled. Follow-up with cardiology within 2-4 weeks for outpatient stress testing. Time Spent: Less than 30 Minutes
== END 2018-08-28 11:30 | disposition home or self-care (01) | DRG 291 ==
LOC: ER 22:55 → EH 08-26 01:33 → 3S 08-26 03:03 → UNDODISIN 08-27 19:25
PROVIDERS: ADMIT Internal Medicine; ATTEND Internal Medicine
PROC: 3E0234Z Introduction of Serum, Toxoid and Vaccine into Muscle, Percutaneous Approach (ICD-10-PCS; principal; 2018-08-28)
DX: I11.0 Hypertensive heart disease with heart failure (principal); J81.0 Acute pulmonary edema; C91.10 Chronic lymphocytic leukemia of B-cell type not having achieved remission; I16.0 Hypertensive urgency; I50.43 Acute on chronic combined systolic (congestive) and diastolic (congestive) heart failure; D69.6 Thrombocytopenia, unspecified; E78.5 Hyperlipidemia, unspecified; R06.01 Orthopnea; Z85.46 Personal history of malignant neoplasm of prostate; Z23 Encounter for immunization
CPT/HCPCS: 36415; 71045; 78472; 80048; 80053; 80061; 82550; 82553; 82803; 83605; 83690; 83880; 84443; 84484; 85025; 85027; 87040; 90686; 93005; 93010; 93306; 96374; 99285; A9560; J1644; J1940; J3490; Q9969

== ENCOUNTER 2020-06-09 11:44 | Emergency (ER) | payer MEDICARE, OTHER ==
[2020-06-09] MEDS ORDERED: COLCHICINE 0.6 MG TABLET PO ONE (15:44)
[2020-06-09] MEDS ORDERED: NORMAL SALINE 500 ML IV ONE ×2 (15:44→17:48)
[2020-06-09] MEDS ORDERED: METHYLPREDNISOLONE INJ 125 MG/2 ML SDV IV ONE (15:45)
[2020-06-09] MEDS ORDERED: MORPHINE SULFATE 10 MG/ML INJ IV ONE (15:46)
[2020-06-09] MEDS ORDERED: KETOROLAC TROMETHAMINE INJ/PF 30 MG/1 ML SDV IV ONE (15:46)
[2020-06-09 16:35] LABS: HEMATOCRIT 35.3 % (37.9-51.0); HEMOGLOBIN 11.9 g/dL (13.5-17.0); MEAN CORPUSCULAR HEMOGLOBIN 28.6 pg (27.0-33.4); MEAN CORPUSCULAR HGB CONC 33.7 g/dL (32.0-36.0); MEAN CORPUSCULAR VOLUME 85 fl (80-97); PLATELET COUNT 179 10^3/uL (150-450); RED BLOOD COUNT 4.15 10^6/uL (4.35-5.55); RED CELL DISTRIBUTION WIDTH 14.6 % (11.5-14.0); WHITE BLOOD COUNT 12.6 10^3/uL (4.0-10.5)
[2020-06-09 16:49] LABS: ALBUMIN 4.4 g/dL (3.5-5.0); ALKALINE PHOSPHATASE 64 U/L (38-126); ANION GAP 8 (5-19); ASPARTATE AMINO TRANSFERASE 49 U/L (17-59); BILIRUBIN,DIRECT 0.1 mg/dL (0.0-0.4); BILIRUBIN,TOTAL 1.1 mg/dL (0.2-1.3); BLOOD UREA NITROGEN 27 mg/dL (7-20); CALCIUM 9.1 mg/dL (8.4-10.2); CARBON DIOXIDE 27 mmol/L (22-30); CHLORIDE 101 mmol/L (98-107); GLUCOSE 133 mg/dL (75-110); POTASSIUM 4.1 mmol/L (3.6-5.0); TOTAL PROTEIN 8.2 g/dL (6.3-8.2); URIC ACID 8.7 mg/dL (3.5-8.5)
[2020-06-09 17:04] LABS: ABSOLUTE LYMPHOCYTES# (MANUAL) 3.9 10^3/uL (0.5-4.7); ABSOLUTE MONOCYTES # (MANUAL) 1.5 10^3/uL (0.1-1.4); BASOPHILS % (MANUAL) 0 % (0-2); EOSINOPHILS % (MANUAL) 1 % (0-6); LYMPHOCYTES % (MANUAL) 31 % (13-45); MONOCYTES % (MANUAL) 12 % (3-13); SEGMENTED NEUTROPHILS % (MAN) 56 % (42-78); TOTAL CELLS COUNTED 100
[2020-06-09 17:05] LABS: ANISOCYTOSIS SLIGHT; PLATELET COMMENT ADEQUATE
--- NOTE | 2020-06-09 17:48 | ER Document Report ---
Entered by NITO MOSS SCRIBE 06/09/20 1538 Acting as scribe for:ARCELIA ROBLES MD ED General - General Chief Complaint: Nausea/Vomiting/Diarrhea Stated Complaint: FOOT/LEG PAIN Time Seen by Provider: 06/09/20 14:44 Information source: Patient Notes: This 69 year old male patient presents to the emergency department today with complaints of nausea and vomiting along with a gout flare up. Patient states that he has had nausea and vomiting for four days but this stopped last night. H e drank milk and ate a can of peaches last night and has not vomited. Patient has also had a gout flare in bilateral feet for the last five days. Patient has been unable to hold down his allopurinol. TRAVEL OUTSIDE OF THE [place] IN LAST 30 DAYS: No - Related Data Allergies/Adverse Reactions: Iodinated Contrast Media Allergy (Severe, Verified 08/26/18 00:29) neck swelling, difficulty breathing Home Medications: allopurinal. lorsartin. lasix. coreg. ambruvica. asa. veltrex Past Medical History - General Information source: Patient - Social History Smoking Status: Never Smoker Cigarette use (# per day): No Chew tobacco use (# tins/day): No Frequency of alcohol use: None Drug Abuse: None Lives with: Family Family History: Reviewed & Not Pertinent, Hypertension Patient has homicidal ideation: No - Past Medical History Cardiac Medical History: Reports: Hx Hypercholesterolemia, Hx Hypertension Malignancy Medical History: Reports Hx Leukemia - cll Past Surgical History: Reports: Hx Orthopedic Surgery - knee, bilateral hips, Other - ProstatectomyComment Only: Hx Genitourinary Surgery - prostate Review of Systems - Review of Systems Constitutional: No symptoms reported EENT: No symptoms reported Cardiovascular: No symptoms reported Respiratory: No symptoms reported Gastrointestinal: See HPI, Nausea, Vomiting Genitourinary: No symptoms reported Male Genitourinary: No symptoms reported Musculoskeletal: See HPI, Joint pain Skin: No symptoms reported Hematologic/Lymphatic: No symptoms reported Neurological/Psychological: No symptoms reported -: Yes All other systems reviewed and negative Physical Exam - Vital signs Vitals: Temp Pulse Resp BP Pulse Ox 101.5 F H 104 H 18 139/97 H 100 06/09/20 11:50 06/09/20 11:50 06/09/20 11:50 06/09/20 11:50 06/09/20 11:50 - Notes Notes: Physical Exam: General: Alert, appears well. HEENT: Normocephalic. Atraumatic. PERRL. Extraocular movements intact. Oropharynx clear. Neck: Supple. Non-tender. Respiratory: No respiratory distress. Clear and equal breath sounds bilaterally. Cardiovascular: Regular rate and rhythm. Abdominal: Normal Inspection. Non-tender. No distension. Normal Bowel Sounds. Back: No gross abnormalities. Extremities: Moves all four extremities. Upper extremities: Normal inspection. Normal ROM. Lower extremities: Feet are swollen, hot to the touch, and exquisitely tender with palpation consistent with gout. Neurological: Normal cognition. AAOx4. Normal speech. Psychological: Normal affect. Normal Mood. Skin: Warm. Dry. Normal color. Course - Re-evaluation Re-evalutation: 06/09/20 17:39 Patient states he is feeling much better in his great toes on each foot pain is diminished. - Vital Signs Vital signs: Temp Pulse Resp BP Pulse Ox 100.3 F 101 H 20 144/85 H 98 06/09/20 14:44 06/09/20 14:41 06/09/20 14:41 06/09/20 14:41 06/09/20 14:41 06/09/20 17:39 Vital signs stable - Laboratory Result Diagrams: 06/09/20 15:48 06/09/20 15:48 Laboratory results interpreted by me: 06/09/20 06/09/20 15:48 15:48 WBC 12.6 H RBC 4.15 L Hgb 11.9 L Hct 35.3 L RDW 14.6 H Abs Monocytes (Manual) 1.5 H Sodium 135.8 L BUN 27 H Creatinine 1.71 H Est GFR ( Amer) 48 L Est GFR (MDRD) Non-Af 40 L Glucose 133 H Uric Acid 8.7 H Laboratories within normal limits except there is a BUN of 27 and creatinine of 1.7 patient admits that he had nausea and vomiting over several days not eating and drinking well. Patient is receiving 1 L normal saline at this time. Patient is uric acid levels elevated at 8.7 consistent with gout. Most likely patient pain and swelling and redness and heat to the great toes is related to gouty arthritis with a mild temp elevation in 101. - Diagnostic Test Radiology reviewed: Image reviewed Discharge - Discharge Clinical Impression: Acute gouty arthritis, Dehydration, Acute kidney injury Condition: Stable Disposition: HOME, SELF-CARE Instructions: Antinausea Medication ([facility]) Additional Instructions: Gout Diet Changing your diet can decrease the uric acid in your blood. High levels of uric acid cause gouty arthritis and uric acid kidney stones. If you have gout, you should avoid meats that are high in purine. Meat products to avoid include liver, kidneys, and brains. In general, poultry is better than red meats. Seafoods to avoid include anchovies, sardines, lucio, mackerel, and scallops. In addition to limiting purine-rich foods, people with gout should limit protein intake to 10-15% of total calories. Carbohydrate intake should be around 50% of total daily calories. Limit fat intake to 30% of total daily calories. Cholesterol intake should be less than 300 mg/day. Maintain or achieve a healthy body weight. Weight loss should be gradual. Rapid weight loss can actually increase uric acid levels temporarily. Alcohol, especially beer, should be avoided. Get plenty of fluids. This dilutes urinary uric acid, and helps prevent uric acid kidney stones. Drink eight to twelve cups of water daily. Gout You have been diagnosed as having gout. Gout is a problem caused by an excess of uric acid, a natural chemical found in the body. The cause of this disease is unknown. Gout arthritis occurs when crystals of uric acid form in the joints. The big toe is the most common joint involved, but any joint can become affected. Persons with gout may also form uric acid kidney stones, resulting in flank pain and blood in the urine. Nodules of uric acid may form under the skin. The first step of treatment is to decrease the inflammation in the joint with antiinflammatory medication. Medication to lower the uric acid level in the blood may then be prescribed. This medication should be taken regularly, as any sudden change in dosage may provoke an attack of gout. Some foods, such as red meat, can provoke an attack in some gout sufferers. Call the doctor if new symptoms arise, or if you do not improve. Prescriptions: Methylprednisolone [Medrol Dosepack (4 mg/Tab) 21 Tab/Dosepak] 4 mg PO ASDIR PRN #21 tab.ds.pk PRN Reason: Hydrocodone/Acetaminophen [[place] 5-325 Tablet] 1 each PO QID PRN #10 tablet PRN Reason: Severe Pain I personally performed the services described in the documentation, reviewed and edited the documentation which was dictated to the scribe in my presence, and it accurately records my words and actions.
[2020-06-09 18:30] VITALS: BP 131/80
== END 2020-06-09 18:30 | disposition home or self-care (01) ==
LOC: ER 11:44
DX: M10.9 Gout, unspecified (principal); E86.0 Dehydration; N17.9 Acute kidney failure, unspecified; I10 Essential (primary) hypertension; Z79.899 Other long term (current) drug therapy; Z79.82 Long term (current) use of aspirin; Z91.041 Radiographic dye allergy status
CPT/HCPCS: 99283; 96361; 96374; 96375; 36415; 84550; 85025; 80053; A9270; J2930; J1885; J2270; J7040